=== PATIENT | male | born 1950 ===

== ENCOUNTER 2018-02-24 15:32 | Emergency (ER) | payer SELFPAY ==
[2018-02-24] MEDS ORDERED: Albuterol 0.083% Inhal Sol (2.5 mg/3 mL) UD IH STA ×3 (15:49→18:06)
[2018-02-24] MEDS ORDERED: Albuterol 0.083% Inhal Sol (2.5 mg/3 mL) UD ONE ×2 (15:55→16:11)
[2018-02-24 16:06] LABS: BASO % 0.6 % (0.0-2.0); EOS # 0.2 K/uL (0.0-0.7); EOS % 2.8 % (0.0-4.0); HEMOGLOBIN 13.9 g/dL (12.0-18.0); LYMPH # 1.4 K/uL (1.0-4.3); LYMPH % 21.1 % (20.0-40.0); MEAN CELL VOLUME 87.4 fL (80.0-94.0); MEAN CORPUSCULAR HEMOGLOBIN 29.2 pg (27.0-31.0); MEAN CORPUSCULAR HGB CONC 33.4 g/dL (33.0-37.0); MEAN PLATELET VOLUME 8.3 fL (7.2-11.7); MONO # 0.6 K/uL (0.0-0.8); MONO % 8.7 % (0.0-10.0); NEUT # 4.4 K/uL (1.8-7.0); NEUT % 66.8 % (50.0-75.0); NRBC % 0.1 % (0.0-2.0); RBC 4.77 Mil/uL (4.40-5.90); RED CELL DISTRIBUTION WIDTH 14.3 % (11.5-14.5); WHITE BLOOD COUNT 6.7 K/uL (4.8-10.8)
[2018-02-24 16:20] LABS: ALB/GLOB RATIO 1.3 (1.0-2.1); ALBUMIN 4.2 g/dL (3.5-5.0); ALT/SGPT 42 U/L (21-72); AST/SGOT 30 U/L (17-59); BLOOD UREA NITROGEN 14 mg/dL (9-20); CALCIUM 7.9 mg/dl (8.6-10.4); GFR AFRICAN-AMERICAN > 60; GFR NON-AFRICAN AMERICAN > 60
[2018-02-24 16:30] LABS: B-TYPE NATRIURETIC PEPTIDE 285 pg/mL (0-900); CK-MB 3.07 ng/mL (0.0-3.38)
--- NOTE | 2018-02-24 17:59 | RAD ---
PROCEDURE: CHEST RADIOGRAPH, 1 VIEW HISTORY: SOB COMPARISON: None available. FINDINGS: LUNGS: Linear opacity at right base likely subsegmental atelectasis. No infiltrate elsewhere. PLEURA: No pneumothorax or pleural fluid seen. CARDIOVASCULAR: Normal. OSSEOUS STRUCTURES: No significant abnormalities. VISUALIZED UPPER ABDOMEN: Normal. OTHER FINDINGS: None. IMPRESSION: Probable linear subsegmental atelectasis at right base. Otherwise unremarkable.
--- NOTE | 2018-02-24 17:59 | C.PDOC ---
History Of Present Illness 68-year-old male, presents to the emergency department with complaints of cough , shortness of breath and wheezing for the past week. He denies chest pain, fever, abdominal pain, nausea/vomiting, Hx of asthma, COPD, or current smoking Hx (is former smoker). No other complaints at this time. Time Seen by Provider: 02/24/18 15:40 Chief Complaint (Nursing): Shortness Of Breath History Per: Patient History/Exam Limitations: no limitations Past Medical History Reviewed: Historical Data, Nursing Documentation, Vital Signs Vital Signs: Last Vital Signs Temp 98.9 F 02/24/18 18:33 Pulse 74 02/24/18 18:33 Resp 20 02/24/18 18:33 BP 122/75 02/24/18 18:33 Pulse Ox 95 02/24/18 18:33 Family History: States: No Known Family Hx - Social History Hx Alcohol Use: No Hx Substance Use: No Review Of Systems Constitutional: Negative for: Fever Cardiovascular: Negative for: Chest Pain, Palpitations Respiratory: Positive for: Cough, Shortness of Breath, Wheezing Gastrointestinal: Negative for: Nausea, Vomiting, Abdominal Pain Musculoskeletal: Negative for: Back Pain Neurological: Negative for: Weakness, Numbness Physical Exam - Physical Exam Appears: Non-toxic, No Acute Distress, Other (Mildly dyspneic, speaking in full sentences) Skin: Normal Color, Warm, Dry, No Rash Head: Atraumatic Eye(s): bilateral: Normal Inspection Nose: Normal Oral Mucosa: Moist Lips: Normal Appearing Neck: Normal ROM Chest: Symmetrical Cardiovascular: Rhythm Regular, No Murmur Respiratory: No Decreased Breath Sounds, No Accessory Muscle Use, Rhonchi ( scattered), Wheezing (expiratory B/L), Other (speaking in full sentences) Gastrointestinal/Abdominal: Soft, No Tenderness Extremity: Pedal Edema (trace, pitting B/L), No Deformity, No Swelling Neurological/Psych: Oriented x3, Normal Speech ED Course And Treatment - Laboratory Results Result Diagrams: 02/24/18 16:04 02/24/18 16:04 ECG: Interpreted By Me, Viewed By Me ECG Rhythm: Sinus Rhythm, R BBB ECG Interpretation: No Acute Changes Interpretation Of ECG: PAC's. Left axis deviation. No acute ST/T wave changes Rate From EC O2 Sat by Pulse Oximetry: 96 (RA) Pulse Ox Interpretation: Normal Progress Note: EKG, Bloodwork, Chest X-Ray ordered and reviewed.Pt treated with duonebs, Azithromycin and SoluMedrol. Disposition Counseled Patient/Family Regarding: Studies Performed, Diagnosis, Need For Followup, Rx Given - Disposition Referrals: [facility] at [facility] [Outside] Disposition: HOME/ ROUTINE Disposition Time: 18:30 Condition: STABLE Additional Instructions: FOLLOW UP IN THE MEDICAL CLINIC IN 1-2 DAYS USE MEDICATIONS DIRECTED RETURN TO ER IF SYMPTOMS WORSEN Prescriptions: Albuterol HFA [Ventolin HFA 90 mcg/actuation (8 g)] 0.09 mg IH Q4 PRN #1 puff PRN Reason: Wheezing Azithromycin [Zithromax] 250 mg PO DAILY #4 tab Benzonatate [Tessalon Perles] 100 mg PO BID PRN #15 sgl PRN Reason: Cough predniSONE [predniSONE Tab] 40 mg PO DAILY #8 tab Instructions: Acute Bronchitis, Adult (DC) Forms: [employer] ([place]) Print Language: SRI LANKAN - POA Present On Arrival: None - Clinical Impression Clinical Impression: Bronchitis, Bronchospasm, acute - Scribe Statement The provider has reviewed the documentation as recorded by the Scribe (Charles Karimi) All medical record entries made by the Scribe were at my direction and personally dictated by me. I have reviewed the chart and agree that the record accurately reflects my personal performance of the history, physical exam, medical decision making, and the department course for this patient. I have also personally directed, reviewed, and agree with the discharge instructions and disposition.
[2018-02-24 18:35] VITALS: BP 122/75; PULSE 74; RESP 20; TEMP 98.9
[2018-02-24 18:39] VITALS: O2SAT 96
--- NOTE | 2018-02-25 16:41 | CARD ---
APPROVED REPORT EKG Measurement Heart [id number] <Conclusion> Sinus rhythm with premature atrial complexes Left axis deviation Incomplete right bundle branch block Abnormal ECG
== END 2018-02-24 18:35 | disposition home or self-care (01) ==
LOC: C.ER 15:32
DX: J40 Bronchitis, not specified as acute or chronic (principal); J98.01 Acute bronchospasm
CPT/HCPCS: 71045; 80053; 82550; 82553; 83880; 84484; 85025; 87040; 93005; 96374; 99284; J2930